=== PATIENT | male | born 1965 | race American Indian/Alaskan Native ===

== ENCOUNTER 2016-12-12 23:34 | Emergency (ER) | payer MEDICAID ==
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
[2016-12-13 04:32] VITALS: BP 111/75
== END 2016-12-13 06:44 | disposition home or self-care (01) ==
LOC: JD.ED 23:34
DX: F10.120 Alcohol abuse with intoxication, uncomplicated (principal); S80.811A Abrasion, right lower leg, initial encounter; S10.91XA Abrasion of unspecified part of neck, initial encounter; Y90.1 Blood alcohol level of 20-39 mg/100 ml; J45.909 Unspecified asthma, uncomplicated; E11.9 Type 2 diabetes mellitus without complications; Z79.84 Long term (current) use of oral hypoglycemic drugs; Z79.899 Other long term (current) drug therapy; Z88.1 Allergy status to other antibiotic agents; V89.2XXA Person injured in unspecified motor-vehicle accident, traffic, initial encounter; Y92.481 Parking lot as the place of occurrence of the external cause
CPT/HCPCS: 36415; 80053; 80306; 85025; 99285; G0480; 99283